=== PATIENT | male | born 1955 | race Caucasian/White ===

== ENCOUNTER 2016-08-06 20:07 | Inpatient (IN) | payer MEDICARE, MEDICAID ==
[~2016-08-06] VITALS: Ht 167.6 cm; Wt 67.6 kg
[~2016-08-06 20:07] MED LIST: BISA10SU8 RC; DOCU-25 GT; FERR325T28 PO; FOLI1TAB16 PO; IPRA0.2S9 IH; LEVE250T2; LEVO500P8 IV; MAGN400O4 GT; NA P133E RC; PROC5TAB25 PO
[2016-08-06] MEDS ORDERED: ONDANSETRON HCL/PF 4 MG/2 ML VIAL ONE (20:16)
[2016-08-06] MEDS ORDERED: IV SET PRIMARY 1 EA INFUS.SET MC ONE ×3 (20:16→21:55)
[2016-08-06] MEDS ORDERED: ACETAMINOPHEN 650 MG/SUPP.RECT RC ONE ×2 (20:16→20:30)
[2016-08-06] MEDS ORDERED: IV SET PRIMARY PUMP SET 1 EA INFUS.SET MC ONE ×4 (20:16→23:13)
[2016-08-06] MEDS ORDERED: IV NS 0.9% 1,000 ML ONE ×3 (20:16→23:13)
[2016-08-06] MEDS ORDERED: PROPOFOL 100 ML IV ONE (20:16)
[2016-08-06 20:23] LABS: BASOPHILS # (AUTO) 0.2 /CMM (0.0-0.2); DIFF TOTAL % 100 %; EOSINOPHILS # (AUTO) 0.1 /CMM (0.0-0.7); EOSINOPHILS % (AUTO) 0.5 % (0.0-6.0); HEMATOCRIT 42 % (39-51); LYMPHOCYTES % (AUTO) 5.5 % (20.0-44.0); MEAN CORPUSCULAR HEMOGLOBIN 31 PG (26.0-33.0); MEAN CORPUSCULAR HGB CONC 33 g/dl (31.0-36.0); MEAN CORPUSCULAR VOLUME 94 fL (80-96); MONOCYTES # (AUTO) 0.1 /CMM (0.1-1.30); MONOCYTES % (AUTO) 0.7 % (2.0-12.0); NEUTROPHILS # (AUTO) 16.9 /CMM (1.8-8.9); NEUTROPHILS % (AUTO) 92.3 % (43.0-81.0); PLATELET COUNT (AUTO) 233 /CMM (150-450); RED BLOOD CELL COUNT(AUTO) 4.51 MIL/uL (4.5-6.0); WHITE BLOOD COUNT (AUTO) 18.3 K/uL (4.3-11.0)
[2016-08-06] MEDS ORDERED: SUCCINYLCHOLINE CHLORIDE 20 MG/ML VIAL IV ONE (20:30)
[2016-08-06] MEDS ORDERED: ONDANSETRON HCL/PF 4 MG/2 ML VIAL IVP ONE (20:30)
[2016-08-06] MEDS ORDERED: IV NS 0.9% 1,000 ML BAG IV ONE (20:30)
[2016-08-06] MEDS ORDERED: PROPOFOL 100 ML IV PRN (20:30)
[2016-08-06] MEDS ORDERED: PANTOPRAZOLE 40 MG VIAL IV ONE (20:30)
[2016-08-06] MEDS ORDERED: ALBUTEROL FS 2.5 MG/0.5 ML VIAL.NEB NEB ONE (20:30)
[2016-08-06] MEDS ORDERED: IPRATROPIUM NEB FS 0.5 MG/2.5 ML AMPUL.NEB NEB ONE (20:30)
[2016-08-06] MEDS ORDERED: LEVETIRACETAM (500MG) 1,000 MG in IV NS 0.9% 100 ML IV SCH (20:30)
[2016-08-06] MEDS ORDERED: ETOMIDATE 2 MG/ML VIAL IV ONE (20:30)
[2016-08-06] MEDS ORDERED: DEXAMETHASONE SOD PHOSPHATE 10 MG/ML VIAL IV ONE (20:30)
[2016-08-06] MEDS ORDERED: ALBUTEROL FS 2.5 MG/0.5 ML VIAL.NEB ONE ×2 (20:34→20:35)
[2016-08-06 20:35] LABS: ANION GAP 18 (5-14); CALCIUM, SERUM 8.8 mg/dL (8.5-10.1); CARBON DIOXIDE 20 mmol/L (21-32); CHLORIDE 103 mmol/L (98-107); CREATININE 1.5 mg/dL (0.6-1.3); GFR 48 mL/min (>60); GLUCOSE 118 mg/dL (74-106); POTASSIUM 4.4 mmol/L (3.5-5.1); SODIUM SERUM 137 mmol/L (136-145); UREA NITROGEN, BLOOD 23 mg/dL (7-18)
[2016-08-06] MEDS ORDERED: IPRATROPIUM NEB FS 0.5 MG/2.5 ML AMPUL.NEB ONE (20:35)
[2016-08-06 20:42] LABS: TROPONIN I < 0.017 ng/mL (0.00-0.056)
[2016-08-06] MEDS ORDERED: LEVETIRACETAM (500MG) 500 MG/5 ML VIAL IV ONE (20:42)
[2016-08-06] MEDS ORDERED: IV NS 0.9% 100 ML IV ONE (20:42)
[2016-08-06] MEDS ORDERED: PANTOPRAZOLE 40 MG VIAL ONE (20:42)
[2016-08-06 20:43] VITALS: BP 107/60
[2016-08-06 20:46] LABS: INR 0.99 (0.87-1.13); PROTHROMBIN TIME 10.4 SECS (9.5-12.7)
[2016-08-06 20:47] LABS: ALANINE AMINOTRANSFERASE 27 U/L (12-78); ALBUMIN 2.4 g/dL (3.4-5.0); ASPARTATE AMINOTRANSFERASE 30 U/L (15-37); BILIRUBIN,DIRECT 0.1 mg/dL (0.0-0.2); BILIRUBIN,TOTAL 0.4 mg/dL (0.2-1.0); INDIRECT BILIRUBIN 0.3 mg/dL (0.0-1.1); TOTAL PROTEIN, SERUM 7.2 g/dL (6.4-8.2)
[2016-08-06] MEDS ORDERED: PIPERACILLIN /TAZOBACTAM 3.375 G in IV D5W 50 ML IV ONE (21:00)
[2016-08-06] MEDS ORDERED: IV NS 0.9% 1,000 ML IV ONE (21:00)
[2016-08-06 21:09] LABS: LACTIC ACID 7.1 mmol/L (0.4-2.0)
[2016-08-06 21:20] LABS: *LACTIC ACID REFLEX FLAG YES
[2016-08-06 21:33] LABS: ABG BASE EXCESS -7.3 mmol/L; ABG HCO3 19.2 mmol/L; ABG PCO2 42.2 mmHg (35.0-45.0); ABG PH 7.275 (7.350-7.450); ABG PO2 77.4 mmHg (75.0-100.0); ABG TOTAL HEMOGLOBIN 11.4 G/dL (13.5-18.0); ALLEN TEST Pass; AaDO2 86.9 mmHg; O2Hb 91.8 % (94.0-97.0)
[2016-08-06] MEDS ORDERED: DEXAMETHASONE SOD PHOSPHATE 10 MG/ML VIAL ONE (21:35)
[2016-08-06] MEDS ORDERED: ALBU2.5V13 NEB (21:42)
[2016-08-06] MEDS ORDERED: MULT-1119 GT (21:42)
[2016-08-06] MEDS ORDERED: ACET-868 GT (21:42)
[2016-08-06] MEDS ORDERED: CALC500T3 GT (21:42)
[2016-08-06] MEDS ORDERED: PIPERACILLIN /TAZOBACTAM 3.375 G VIAL IV ONE (21:55)
[2016-08-06] MEDS ORDERED: IV NS 0.9% 50 ML IV ONE (21:55)
[2016-08-06] MEDS ORDERED: IV LR 1000 ML 1,000 ML IV ONE (22:30)
[2016-08-06] MEDS ORDERED: NOREPINEPHRINE 8 MG in IV D5W 500 ML IV PRN ×2 (22:30→23:00)
[2016-08-06 22:49] VITALS: BP 136/45
[2016-08-06] MEDS ORDERED: VANCOMYCIN 1 GM VIAL ONE (22:49)
[2016-08-06] MEDS ORDERED: IV D5W 250 ML IV ONE (22:50)
[2016-08-06 22:54] VITALS: BP 136/45
[2016-08-06 23:00] VITALS: BP 77/53
[2016-08-06] MEDS ORDERED: IV NS 0.9% 1,000 ML BAG IV PRN (23:00)
[2016-08-06] MEDS ORDERED: ONDANSETRON HCL/PF 4 MG/2 ML VIAL IV PRN (23:00)
[2016-08-06] MEDS ORDERED: ACETAMINOPHEN LIQUID 160 MG/5 ML BOTTLE PO PRN ×2 (23:00)
[2016-08-06] MEDS ORDERED: VANCOMYCIN 1 GM in IV D5W 250 ML IV SCH (23:00)
[2016-08-06] MEDS: PANTOPRAZOLE 40 MG VIAL IV SCH (23:09)
[2016-08-06 23:15] VITALS: BP 71/51
[2016-08-06] MEDS ORDERED: NOREPINEPHRINE 4 MG/4 ML AMPUL IV ONE ×2 (23:20)
[2016-08-06] MEDS ORDERED: IV D5W 500 ML IV ONE (23:21)
[2016-08-06 23:30] VITALS: BP 77/52
[2016-08-06] MEDS ORDERED: NOREPINEPHRINE 16 MG in IV D5W 500 ML IV PRN (23:30)
[2016-08-06] MEDS ORDERED: VANCOMYCIN 1 GM in IV D5W 250 ML IV ONE (23:58)
[2016-08-07] VITALS (88 sets, daily range): BP systolic 73–146; BP diastolic 43–89
[2016-08-07 04:39] LABS: DIFF TOTAL % 100 %; HEMATOCRIT 37 % (39-51); LYMPHOCYTES # (AUTO) 0.4 /CMM (0.8-4.8); LYMPHOCYTES % (AUTO) 1.9 % (20.0-44.0); MEAN CORPUSCULAR HEMOGLOBIN 31 PG (26.0-33.0); MEAN CORPUSCULAR HGB CONC 33 g/dl (31.0-36.0); MEAN CORPUSCULAR VOLUME 94 fL (80-96); MONOCYTES # (AUTO) 0.3 /CMM (0.1-1.30); MONOCYTES % (AUTO) 1.5 % (2.0-12.0); NEUTROPHILS # (AUTO) 19.8 /CMM (1.8-8.9); NEUTROPHILS % (AUTO) 96.6 % (43.0-81.0); PLATELET COUNT (AUTO) 333 /CMM (150-450); RED BLOOD CELL COUNT(AUTO) 3.92 MIL/uL (4.5-6.0); WHITE BLOOD COUNT (AUTO) 20.5 K/uL (4.3-11.0)
[2016-08-07 04:54] LABS: CALCIUM, SERUM 7.4 mg/dL (8.5-10.1); CREATININE 1.4 mg/dL (0.6-1.3); POTASSIUM 4.1 mmol/L (3.5-5.1)
[2016-08-07 05:04] LABS: LYMPHOCYTES % (MANUAL) 3 % (16-48); PLATELET ESTIMATE ADEQUATE
[2016-08-07] MEDS ORDERED: PIPERACILLIN /TAZOBACTAM 3.375 G VIAL IV ONE (05:05)
[2016-08-07] MEDS ORDERED: IV D5W 50 ML IV ONE (05:05)
[2016-08-07] MEDS ORDERED: SECONDARY IV SET 1 EA INFUS.SET MC ONE ×2 (05:06→10:54)
[2016-08-07] MEDS: PIPERACILLIN /TAZOBACTAM 3.375 G in IV D5W 50 ML IV SCH ×4 (05:22→23:15)
[2016-08-07] MEDS ORDERED: IV SET PRIMARY PUMP SET 1 EA INFUS.SET MC ONE (07:47)
[2016-08-07] MEDS: PROPOFOL 100 ML IV PRN ×3 (07:51→21:44)
[2016-08-07] MEDS ORDERED: AMOX500T2 PO (07:57)
[2016-08-07] MEDS ORDERED: ZINC220T GT (07:57)
[2016-08-07] MEDS ORDERED: LEVE500S GT (07:57)
[2016-08-07] MEDS ORDERED: CRAN3875 GT (07:57)
[2016-08-07] MEDS ORDERED: ASCO500T9 PO (07:57)
[2016-08-07 08:15] LABS: ABG BASE EXCESS -7.2 mmol/L; ABG HCO3 17.3 mmol/L; ABG PH 7.351 (7.350-7.450); ABG PO2 108.6 mmHg (75.0-100.0); ABG TOTAL HEMOGLOBIN 12.4 G/dL (13.5-18.0); ALLEN TEST PASSED; AaDO2 139.8 mmHg; O2Hb 95.9 % (94.0-97.0)
[2016-08-07] MEDS ORDERED: FEE PK DOSING 1 MIN EA MC ONE (08:41)
[2016-08-07] MEDS ORDERED: ACETAMINOPHEN 650 MG/20.3 ML UDC NG PRN (09:00)
[2016-08-07] MEDS ORDERED: SUCCINYLCHOLINE CHLORIDE 20 MG/ML VIAL IV ONE (09:27)
[2016-08-07] MEDS ORDERED: ETOMIDATE 2 MG/ML VIAL IV ONE (09:27)
[2016-08-07] MEDS ORDERED: FEE EMEERGENCY 1 MIN EA MC ONE (09:28)
[2016-08-07] MEDS: PANTOPRAZOLE 40 MG VIAL IV SCH ×2 (09:39→20:51)
[2016-08-07] MEDS: IV NS 0.9% 1,000 ML IV PRN ×2 (10:01→23:16)
[2016-08-07] MEDS: LEVETIRACETAM (500MG) 500 MG in IV NS 0.9% 100 ML IV SCH ×2 (10:02→20:51)
[2016-08-07] MEDS: VANCOMYCIN 0.75 GM in IV D5W 250 ML IV SCH ×2 (10:53→22:07)
[2016-08-07] MEDS ORDERED: ALBUTEROL HALF STRENGTH 1.25 MG/3 ML VIAL.NEB NEB SCH (13:00)
[2016-08-07] MEDS: IPRATROPIUM NEB FS 0.5 MG/2.5 ML AMPUL.NEB NEB SCH ×4 (13:24→23:42)
[2016-08-07] MEDS: ENOXAPARIN SODIUM 30 MG/0.3 ML DISP.SYRIN SQ SCH (14:22)
[2016-08-07] MEDS: NOREPINEPHRINE 16 MG in IV D5W 500 ML IV PRN (16:13)
[2016-08-07] MEDS: ALBUTEROL HALF STRENGTH 1.25 MG/3 ML VIAL.NEB NEB SCH ×2 (19:43→23:42)
[2016-08-07] MEDS ORDERED: IV NS 0.9% 1,000 ML BAG IV SCH (23:00)
[2016-08-08] VITALS (74 sets, daily range): BP systolic 67–168; BP diastolic 27–100
[2016-08-08] MEDS: ALBUTEROL HALF STRENGTH 1.25 MG/3 ML VIAL.NEB NEB SCH ×6 (03:51→23:03)
[2016-08-08] MEDS: IPRATROPIUM NEB FS 0.5 MG/2.5 ML AMPUL.NEB NEB SCH ×6 (03:51→23:03)
[2016-08-08] MEDS: PROPOFOL 100 ML IV PRN ×3 (04:02→20:46)
[2016-08-08 05:09] LABS: CALCIUM, SERUM 7.4 mg/dL (8.5-10.1); CREATININE 0.9 mg/dL (0.6-1.3); POTASSIUM 3.4 mmol/L (3.5-5.1)
[2016-08-08] MEDS: PIPERACILLIN /TAZOBACTAM 3.375 G in IV D5W 50 ML IV SCH ×3 (05:28→17:32)
[2016-08-08] MEDS: PANTOPRAZOLE 40 MG VIAL IV SCH ×2 (08:29→20:51)
[2016-08-08] MEDS: LEVETIRACETAM (500MG) 500 MG in IV NS 0.9% 100 ML IV SCH ×2 (08:29→20:50)
[2016-08-08] MEDS: ENOXAPARIN SODIUM 30 MG/0.3 ML DISP.SYRIN SQ SCH (08:30)
[2016-08-08 09:16] LABS: ABG BASE EXCESS -3.7 mmol/L; ABG HCO3 20.7 mmol/L; ABG PCO2 35.1 mmHg (35.0-45.0); ABG PH 7.389 (7.350-7.450); ABG PO2 39.8 mmHg (75.0-100.0); ABG TOTAL HEMOGLOBIN 11.3 G/dL (13.5-18.0); O2Hb 76.7 % (94.0-97.0)
[2016-08-08] MEDS: VANCOMYCIN 0.75 GM in IV D5W 250 ML IV SCH ×2 (10:51→23:05)
[2016-08-08] MEDS ORDERED: IV SET PRIMARY PUMP SET 1 EA INFUS.SET MC ONE ×2 (10:52→17:19)
[2016-08-08] MEDS: POTASSIUM CL. PREMIX PERIPHER. 50 ML IV SCH ×2 (10:58→11:51)
[2016-08-08] MEDS: IV NS 0.9% 1,000 ML IV PRN (11:51)
[2016-08-08] MEDS ORDERED: Z GUARD REMEDY 4 OZ OINT TP PRN (12:30)
[2016-08-08] MEDS: FIBERSOURCE HN 1,000 ML BOTTLE GT PRN (14:00)
[2016-08-08] MEDS: NOREPINEPHRINE 16 MG in IV D5W 500 ML IV PRN (17:17)
[2016-08-08] MEDS: LACTOBACILLUS RHAMNOSUS GG 1 EACH CAP.SPRINK NG SCH (17:32)
[2016-08-08] MEDS: MORPHINE SULFATE INJ 2 MG/ML DISP.SYRIN IV PRN (22:34)
[2016-08-09] VITALS (57 sets, daily range): BP systolic 71–155; BP diastolic 43–102
[2016-08-09] MEDS: PIPERACILLIN /TAZOBACTAM 3.375 G in IV D5W 50 ML IV SCH ×4 (01:22→17:07)
[2016-08-09] MEDS: PROPOFOL 100 ML IV PRN ×4 (01:58→22:31)
[2016-08-09] MEDS: IPRATROPIUM NEB FS 0.5 MG/2.5 ML AMPUL.NEB NEB SCH ×5 (03:47→19:40)
[2016-08-09] MEDS: ALBUTEROL HALF STRENGTH 1.25 MG/3 ML VIAL.NEB NEB SCH ×5 (03:47→19:40)
[2016-08-09 05:56] LABS: CALCIUM, SERUM 7.3 mg/dL (8.5-10.1); CREATININE 0.9 mg/dL (0.6-1.3); POTASSIUM 3.3 mmol/L (3.5-5.1)
[2016-08-09 08:48] LABS: ABG HCO3 22.8 mmol/L; ABG PCO2 39.5 mmHg (35.0-45.0); ABG PO2 81.4 mmHg (75.0-100.0); ABG TOTAL HEMOGLOBIN 12.3 G/dL (13.5-18.0); ALLEN TEST Pass; O2Hb 94.3 % (94.0-97.0)
[2016-08-09] MEDS: PANTOPRAZOLE 40 MG VIAL IV SCH ×2 (10:03→21:10)
[2016-08-09] MEDS: LACTOBACILLUS RHAMNOSUS GG 1 EACH CAP.SPRINK NG SCH ×2 (10:03→17:06)
[2016-08-09] MEDS: LEVETIRACETAM (500MG) 500 MG in IV NS 0.9% 100 ML IV SCH (10:03)
[2016-08-09] MEDS: ENOXAPARIN SODIUM 30 MG/0.3 ML DISP.SYRIN SQ SCH (10:04)
[2016-08-09] MEDS ORDERED: SECONDARY IV SET 1 EA INFUS.SET MC ONE (11:03)
[2016-08-09] MEDS: VANCOMYCIN 0.75 GM in IV D5W 250 ML IV SCH (11:19)
[2016-08-09] MEDS: POTASSIUM CL. PREMIX PERIPHER. 50 ML IV SCH ×2 (14:26→15:45)
[2016-08-09] MEDS ORDERED: IV SET PRIMARY PUMP SET 1 EA INFUS.SET MC ONE (17:00)
[2016-08-09] MEDS: NOREPINEPHRINE 16 MG in IV D5W 500 ML IV PRN (17:16)
[2016-08-09] MEDS: METOCLOPRAMIDE HCL 10 MG/2 ML VIAL IV SCH (19:50)
[2016-08-09] MEDS: IV NS 0.9% 1,000 ML IV PRN (19:51)
[2016-08-09] MEDS: LEVETIRACETAM SOL (5 ML) 100 MG/ML UDC PO SCH (21:10)
[2016-08-09] MEDS: VANCOMYCIN 1 GM in IV D5W 250 ML IV SCH (22:55)
[2016-08-09] MEDS: FIBERSOURCE HN 1,000 ML BOTTLE GT PRN (23:15)
[2016-08-10] VITALS (65 sets, daily range): BP systolic 56–140; BP diastolic 37–87
[2016-08-10] MEDS: IPRATROPIUM NEB FS 0.5 MG/2.5 ML AMPUL.NEB NEB SCH ×7 (00:01→23:31)
[2016-08-10] MEDS: ALBUTEROL HALF STRENGTH 1.25 MG/3 ML VIAL.NEB NEB SCH ×7 (00:01→23:31)
[2016-08-10] MEDS: PIPERACILLIN /TAZOBACTAM 3.375 G in IV D5W 50 ML IV SCH ×4 (00:07→18:57)
[2016-08-10] MEDS: METOCLOPRAMIDE HCL 10 MG/2 ML VIAL IV SCH ×4 (01:41→19:30)
[2016-08-10 05:07] LABS: BASOPHILS % (AUTO) 0.5 % (0.0-2.0); DIFF TOTAL % 100 %; EOSINOPHILS # (AUTO) 0.4 /CMM (0.0-0.7); EOSINOPHILS % (AUTO) 3.8 % (0.0-6.0); HEMATOCRIT 32 % (39-51); HEMOGLOBIN 10.7 g/dL (13.5-17.5); LYMPHOCYTES # (AUTO) 1.7 /CMM (0.8-4.8); MEAN CORPUSCULAR HEMOGLOBIN 32 PG (26.0-33.0); MEAN CORPUSCULAR HGB CONC 34 g/dl (31.0-36.0); MEAN CORPUSCULAR VOLUME 93 fL (80-96); MONOCYTES # (AUTO) 0.6 /CMM (0.1-1.30); MONOCYTES % (AUTO) 6.1 % (2.0-12.0); NEUTROPHILS # (AUTO) 7.1 /CMM (1.8-8.9); NEUTROPHILS % (AUTO) 72.6 % (43.0-81.0); PLATELET COUNT (AUTO) 286 /CMM (150-450); WHITE BLOOD COUNT (AUTO) 9.8 K/uL (4.3-11.0)
[2016-08-10 05:15] LABS: CALCIUM, SERUM 7.6 mg/dL (8.5-10.1); CREATININE 0.9 mg/dL (0.6-1.3); POTASSIUM 3.1 mmol/L (3.5-5.1)
[2016-08-10] MEDS: PROPOFOL 100 ML IV PRN (06:23)
[2016-08-10] MEDS: LACTOBACILLUS RHAMNOSUS GG 1 EACH CAP.SPRINK NG SCH ×2 (08:24→18:57)
[2016-08-10] MEDS: PANTOPRAZOLE 40 MG VIAL IV SCH ×2 (08:24→20:29)
[2016-08-10] MEDS: LEVETIRACETAM SOL (5 ML) 100 MG/ML UDC PO SCH ×2 (08:24→20:29)
[2016-08-10] MEDS: ENOXAPARIN SODIUM 30 MG/0.3 ML DISP.SYRIN SQ SCH (08:25)
[2016-08-10] MEDS: POTASSIUM CL. PREMIX PERIPHER. 50 ML IV SCH ×4 (11:28→15:12)
[2016-08-10] MEDS: VANCOMYCIN 1 GM in IV D5W 250 ML IV SCH ×2 (11:28→23:07)
[2016-08-10 11:31] LABS: ABG BASE EXCESS 2.8 mmol/L; ABG HCO3 27.4 mmol/L; ABG PCO2 42.3 mmHg (35.0-45.0); ABG PO2 92.3 mmHg (75.0-100.0); ABG TOTAL HEMOGLOBIN 11.5 G/dL (13.5-18.0); ALLEN TEST Pass; AaDO2 71.9 mmHg; O2Hb 95.9 % (94.0-97.0)
[2016-08-10] MEDS: NOREPINEPHRINE 16 MG in IV D5W 500 ML IV PRN (18:58)
[2016-08-10] MEDS: IV NS 0.9% 1,000 ML IV PRN (20:30)
[2016-08-11] VITALS (52 sets, daily range): BP systolic 73–147; BP diastolic 37–82
[2016-08-11] MEDS: PIPERACILLIN /TAZOBACTAM 3.375 G in IV D5W 50 ML IV SCH ×4 (00:39→17:05)
[2016-08-11] MEDS: METOCLOPRAMIDE HCL 10 MG/2 ML VIAL IV SCH ×4 (01:35→20:56)
[2016-08-11] MEDS: IPRATROPIUM NEB FS 0.5 MG/2.5 ML AMPUL.NEB NEB SCH ×5 (03:06→19:38)
[2016-08-11] MEDS: ALBUTEROL HALF STRENGTH 1.25 MG/3 ML VIAL.NEB NEB SCH ×5 (03:06→19:38)
[2016-08-11] MEDS ORDERED: SECONDARY IV SET 1 EA INFUS.SET MC ONE (08:08)
[2016-08-11] MEDS ORDERED: IV SET PRIMARY PUMP SET 1 EA INFUS.SET MC ONE (08:09)
[2016-08-11] MEDS: LEVETIRACETAM SOL (5 ML) 100 MG/ML UDC PO SCH ×2 (08:14→20:56)
[2016-08-11] MEDS: ENOXAPARIN SODIUM 30 MG/0.3 ML DISP.SYRIN SQ SCH (08:14)
[2016-08-11] MEDS: LACTOBACILLUS RHAMNOSUS GG 1 EACH CAP.SPRINK NG SCH ×2 (08:14→17:05)
[2016-08-11] MEDS: PANTOPRAZOLE 40 MG VIAL IV SCH ×2 (08:14→20:56)
[2016-08-11] MEDS: POTASSIUM CHLORIDE 20 MEQ POWDER PACKET GT SCH ×3 (10:09→12:37)
[2016-08-11] MEDS ORDERED: DC PROPOFOL WHEN EXTUBATED XX PRN (11:00)
[2016-08-11] MEDS: VANCOMYCIN 1 GM in IV D5W 250 ML IV SCH ×2 (11:06→23:19)
[2016-08-11] MEDS: IV NS 0.9% 1,000 ML IV PRN (17:05)
[2016-08-11] MEDS: NOREPINEPHRINE 16 MG in IV D5W 500 ML IV PRN (17:06)
[2016-08-12] VITALS (51 sets, daily range): BP systolic 69–141; BP diastolic 22–80
[2016-08-12] MEDS: IPRATROPIUM NEB FS 0.5 MG/2.5 ML AMPUL.NEB NEB SCH ×7 (00:05→23:21)
[2016-08-12] MEDS: ALBUTEROL HALF STRENGTH 1.25 MG/3 ML VIAL.NEB NEB SCH ×7 (00:06→23:21)
[2016-08-12] MEDS: METOCLOPRAMIDE HCL 10 MG/2 ML VIAL IV SCH ×4 (00:40→19:29)
[2016-08-12] MEDS: PIPERACILLIN /TAZOBACTAM 3.375 G in IV D5W 50 ML IV SCH ×4 (00:40→17:53)
[2016-08-12] MEDS: FIBERSOURCE HN 1,000 ML BOTTLE GT PRN (02:00)
[2016-08-12 03:34] LABS: ABG BASE EXCESS 0.2 mmol/L; ABG HCO3 24.5 mmol/L; ABG PCO2 38.3 mmHg (35.0-45.0); ABG PH 7.423 (7.350-7.450); ABG PO2 128.4 mmHg (75.0-100.0); ABG TOTAL HEMOGLOBIN 13.1 G/dL (13.5-18.0); ALLEN TEST Pass; O2Hb 96.7 % (94.0-97.0)
[2016-08-12 05:05] LABS: CALCIUM, SERUM 7.5 mg/dL (8.5-10.1); CREATININE 1.2 mg/dL (0.6-1.3); POTASSIUM 3.4 mmol/L (3.5-5.1)
[2016-08-12] MEDS: LACTOBACILLUS RHAMNOSUS GG 1 EACH CAP.SPRINK NG SCH ×2 (08:17→17:53)
[2016-08-12] MEDS: ENOXAPARIN SODIUM 30 MG/0.3 ML DISP.SYRIN SQ SCH (08:17)
[2016-08-12] MEDS: LEVETIRACETAM SOL (5 ML) 100 MG/ML UDC PO SCH ×2 (08:17→20:49)
[2016-08-12] MEDS: PANTOPRAZOLE 40 MG VIAL IV SCH ×2 (08:17→20:49)
[2016-08-12] MEDS ORDERED: POTASSIUM CHLORIDE 20 MEQ POWDER PACKET GT SCH (11:00)
[2016-08-12] MEDS: VANCOMYCIN 1 GM in IV D5W 250 ML IV SCH ×2 (11:01→23:01)
[2016-08-12] MEDS ORDERED: IV SET PRIMARY PUMP SET 1 EA INFUS.SET MC ONE ×2 (12:34→15:48)
[2016-08-12] MEDS: MORPHINE SULFATE INJ 2 MG/ML DISP.SYRIN IV PRN (14:24)
[2016-08-12] MEDS: NOREPINEPHRINE 16 MG in IV D5W 500 ML IV PRN (14:28)
[2016-08-12] MEDS: IV NS 0.9% 1,000 ML IV PRN (15:57)
[2016-08-13] VITALS (46 sets, daily range): BP systolic 75–134; BP diastolic 32–81
[2016-08-13] MEDS: PIPERACILLIN /TAZOBACTAM 3.375 G in IV D5W 50 ML IV SCH ×4 (00:25→17:45)
[2016-08-13] MEDS: IPRATROPIUM NEB FS 0.5 MG/2.5 ML AMPUL.NEB NEB SCH ×6 (03:12→23:55)
[2016-08-13] MEDS: ALBUTEROL HALF STRENGTH 1.25 MG/3 ML VIAL.NEB NEB SCH ×6 (03:12→23:56)
[2016-08-13] MEDS: METOCLOPRAMIDE HCL 10 MG/2 ML VIAL IV SCH ×4 (03:40→19:32)
[2016-08-13 05:35] LABS: CALCIUM, SERUM 7.3 mg/dL (8.5-10.1); CREATININE 1.4 mg/dL (0.6-1.3); POTASSIUM 3.4 mmol/L (3.5-5.1)
[2016-08-13] MEDS: FIBERSOURCE HN 1,000 ML BOTTLE GT PRN (06:21)
[2016-08-13] MEDS ORDERED: NOREPINEPHRINE 16 MG in IV D5W 500 ML IV PRN (09:00)
[2016-08-13] MEDS ORDERED: IV NS 0.9% 250 ML IV ONE ×3 (09:00→15:30)
[2016-08-13] MEDS: LACTOBACILLUS RHAMNOSUS GG 1 EACH CAP.SPRINK NG SCH ×2 (09:18→17:44)
[2016-08-13] MEDS: PANTOPRAZOLE 40 MG VIAL IV SCH ×2 (09:18→21:04)
[2016-08-13] MEDS: ENOXAPARIN SODIUM 30 MG/0.3 ML DISP.SYRIN SQ SCH (09:18)
[2016-08-13] MEDS: LEVETIRACETAM SOL (5 ML) 100 MG/ML UDC PO SCH ×2 (09:18→21:04)
[2016-08-13] MEDS ORDERED: POTASSIUM CHLORIDE 20 MEQ POWDER PACKET GT ONE (10:00)
[2016-08-13] MEDS: VANCOMYCIN 1 GM in IV D5W 250 ML IV SCH (11:00)
[2016-08-13] MEDS: IV NS 0.9% 1,000 ML IV PRN (13:43)
[2016-08-14] VITALS (20 sets, daily range): BP systolic 104–134; BP diastolic 45–78
[2016-08-14] MEDS: PIPERACILLIN /TAZOBACTAM 3.375 G in IV D5W 50 ML IV SCH ×4 (00:21→17:34)
[2016-08-14] MEDS: METOCLOPRAMIDE HCL 10 MG/2 ML VIAL IV SCH ×4 (01:37→19:07)
[2016-08-14] MEDS: IPRATROPIUM NEB FS 0.5 MG/2.5 ML AMPUL.NEB NEB SCH ×6 (03:29→23:06)
[2016-08-14] MEDS: ALBUTEROL HALF STRENGTH 1.25 MG/3 ML VIAL.NEB NEB SCH ×6 (03:29→23:06)
[2016-08-14 05:36] LABS: CALCIUM, SERUM 7.5 mg/dL (8.5-10.1); CREATININE 1.6 mg/dL (0.6-1.3); POTASSIUM 3.8 mmol/L (3.5-5.1)
[2016-08-14] MEDS: FIBERSOURCE HN 1,000 ML BOTTLE GT PRN (05:47)
[2016-08-14] MEDS: IV NS 0.9% 1,000 ML IV PRN ×2 (05:48→20:22)
[2016-08-14] MEDS ORDERED: SECONDARY IV SET 1 EA INFUS.SET MC ONE ×3 (06:14→20:40)
[2016-08-14] MEDS ORDERED: VANCOMYCIN 0.75 GM in IV D5W 250 ML IV SCH (08:00)
[2016-08-14] MEDS: PANTOPRAZOLE 40 MG VIAL IV SCH ×2 (08:39→20:47)
[2016-08-14] MEDS: ENOXAPARIN SODIUM 30 MG/0.3 ML DISP.SYRIN SQ SCH (08:39)
[2016-08-14] MEDS: LEVETIRACETAM SOL (5 ML) 100 MG/ML UDC PO SCH ×2 (08:39→20:47)
[2016-08-14] MEDS: LACTOBACILLUS RHAMNOSUS GG 1 EACH CAP.SPRINK NG SCH ×2 (08:39→17:34)
[2016-08-14] MEDS: VANCOMYCIN 0.75 GM in IV D5W 250 ML IV SCH (20:22)
[2016-08-15] MEDS: PIPERACILLIN /TAZOBACTAM 3.375 G in IV D5W 50 ML IV SCH ×5 (00:35→23:34)
[2016-08-15] MEDS: METOCLOPRAMIDE HCL 10 MG/2 ML VIAL IV SCH ×4 (00:53→19:30)
[2016-08-15] MEDS: ALBUTEROL HALF STRENGTH 1.25 MG/3 ML VIAL.NEB NEB SCH ×5 (03:10→20:16)
[2016-08-15] MEDS: IPRATROPIUM NEB FS 0.5 MG/2.5 ML AMPUL.NEB NEB SCH ×5 (03:10→20:16)
[2016-08-15] MEDS: FIBERSOURCE HN 1,000 ML BOTTLE GT PRN ×2 (04:41→21:45)
[2016-08-15 06:55] LABS: CALCIUM, SERUM 8.2 mg/dL (8.5-10.1); CREATININE 1.7 mg/dL (0.6-1.3); POTASSIUM 3.9 mmol/L (3.5-5.1)
[2016-08-15 08:00] VITALS: BP 131/83
[2016-08-15] MEDS: LACTOBACILLUS RHAMNOSUS GG 1 EACH CAP.SPRINK NG SCH ×2 (08:42→17:31)
[2016-08-15] MEDS: LEVETIRACETAM SOL (5 ML) 100 MG/ML UDC PO SCH ×2 (08:42→21:40)
[2016-08-15] MEDS: PANTOPRAZOLE 40 MG VIAL IV SCH ×2 (08:42→21:40)
[2016-08-15] MEDS: ENOXAPARIN SODIUM 40 MG/0.4 ML DISP.SYRIN SQ SCH (08:50)
[2016-08-15] MEDS ORDERED: ENOXAPARIN SODIUM 30 MG/0.3 ML DISP.SYRIN SQ SCH (09:00)
[2016-08-15] MEDS: VANCOMYCIN 0.75 GM in IV D5W 250 ML IV SCH (10:11)
[2016-08-15] MEDS: IV NS 0.9% 1,000 ML IV PRN (14:53)
[2016-08-15 16:00] VITALS: BP 116/100
[2016-08-15 20:00] VITALS: BP 95/63
[2016-08-16] MEDS: ALBUTEROL HALF STRENGTH 1.25 MG/3 ML VIAL.NEB NEB SCH ×8 (00:24→23:57)
[2016-08-16] MEDS: IPRATROPIUM NEB FS 0.5 MG/2.5 ML AMPUL.NEB NEB SCH ×8 (00:24→23:56)
[2016-08-16] MEDS: IV NS 0.9% 1,000 ML IV PRN ×2 (00:52→17:07)
[2016-08-16] MEDS: METOCLOPRAMIDE HCL 10 MG/2 ML VIAL IV SCH ×3 (02:05→13:30)
[2016-08-16] MEDS: PIPERACILLIN /TAZOBACTAM 3.375 G in IV D5W 50 ML IV SCH ×3 (05:55→17:01)
[2016-08-16 07:10] LABS: CALCIUM, SERUM 8.1 mg/dL (8.5-10.1); CREATININE 1.7 mg/dL (0.6-1.3); POTASSIUM 4.1 mmol/L (3.5-5.1)
[2016-08-16 08:00] VITALS: BP 111/76
[2016-08-16] MEDS: LEVETIRACETAM SOL (5 ML) 100 MG/ML UDC PO SCH ×2 (08:22→22:41)
[2016-08-16] MEDS: PANTOPRAZOLE 40 MG VIAL IV SCH ×2 (08:22→22:41)
[2016-08-16] MEDS: LACTOBACILLUS RHAMNOSUS GG 1 EACH CAP.SPRINK NG SCH ×2 (08:23→17:01)
[2016-08-16] MEDS: ENOXAPARIN SODIUM 40 MG/0.4 ML DISP.SYRIN SQ SCH (08:26)
[2016-08-16 16:00] VITALS: BP 117/74
[2016-08-16 20:00] VITALS: BP 111/71
[2016-08-17] MEDS: METOCLOPRAMIDE HCL 10 MG/2 ML VIAL IV SCH ×4 (00:14→12:02)
[2016-08-17] MEDS: PIPERACILLIN /TAZOBACTAM 3.375 G in IV D5W 50 ML IV SCH ×3 (00:14→12:00)
[2016-08-17] MEDS: FIBERSOURCE HN 1,000 ML BOTTLE GT PRN (01:21)
[2016-08-17] MEDS: ALBUTEROL HALF STRENGTH 1.25 MG/3 ML VIAL.NEB NEB SCH ×4 (03:27→16:41)
[2016-08-17] MEDS: IPRATROPIUM NEB FS 0.5 MG/2.5 ML AMPUL.NEB NEB SCH ×4 (03:27→16:41)
[2016-08-17 08:27] VITALS: BP 111/74
[2016-08-17] MEDS: PANTOPRAZOLE 40 MG VIAL IV SCH (08:41)
[2016-08-17] MEDS: LEVETIRACETAM SOL (5 ML) 100 MG/ML UDC PO SCH (08:41)
[2016-08-17] MEDS: LACTOBACILLUS RHAMNOSUS GG 1 EACH CAP.SPRINK NG SCH (08:41)
[2016-08-17] MEDS: ENOXAPARIN SODIUM 40 MG/0.4 ML DISP.SYRIN SQ SCH (08:42)
[2016-08-17 16:00] VITALS: BP 121/66
== END 2016-08-17 18:30 | DRG 870 ==
LOC: ER 20:09 → ICU 22:03 → MEDSG2 08-14 11:28
PROVIDERS: ADMIT Legal Medicine; ATTEND Legal Medicine
PROC: 0BH17EZ Insertion of Endotracheal Airway into Trachea, Via Natural or Artificial Opening (ICD-10-PCS; principal; 2016-08-07)
PROC: 5A1955Z Respiratory Ventilation, Greater than 96 Consecutive Hours (ICD-10-PCS; 2016-08-07)
PROC: 02HV33Z Insertion of Infusion Device into Superior Vena Cava, Percutaneous Approach (ICD-10-PCS; 2016-08-07)
PROC: B548ZZA Ultrasonography of Superior Vena Cava, Guidance (ICD-10-PCS; 2016-08-07)
DX: A41.9 Sepsis, unspecified organism (principal); J69.0 Pneumonitis due to inhalation of food and vomit; J96.01 Acute respiratory failure with hypoxia; R65.21 Severe sepsis with septic shock; G93.41 Metabolic encephalopathy; G40.909 Epilepsy, unspecified, not intractable, without status epilepticus; Q90.9 Down syndrome, unspecified; M19.90 Unspecified osteoarthritis, unspecified site; F79 Unspecified intellectual disabilities; I10 Essential (primary) hypertension; Z51.5 Encounter for palliative care; F09 Unspecified mental disorder due to known physiological condition; I25.10 Atherosclerotic heart disease of native coronary artery without angina pectoris; R13.10 Dysphagia, unspecified; Z66 Do not resuscitate
CPT/HCPCS: 31720; 36415; 36569; 36600; 71010-TC; 80048-TC; 80076-TC; 80202-TC; 82803-TC; 82962-TC; 83605-TC; 83880; 84484-TC; 85025-TC; 85730-TC; 86850-TC; 87040-TC; 87081-TC; 94002-TC; 94003-TC; 94760-TC; 94799-TC; 99082-TC; A4216; A4349; A4606; A4624; C1751; C9113; J0330; J1100; J1650; J1953; J2270; J2405; J2543; J2765; J3370; J3480; J3490; J7030; J7050; J7060